=== PATIENT | male | born 1970 | race African-American/Black ===

== ENCOUNTER 2019-11-12 09:08 | Inpatient (IN) | payer SELFPAY ==
[~2019-11-12] VITALS: Ht 175.3 cm; Wt 176.9 kg
[2019-11-12 10:36] LABS: BASOPHILS % 0.4 % (0.0-2.0); HEMATOCRIT. 39.8 % (42.0-52.0); HEMOGLOBIN. 13.2 g/dL (14.0-18.0); LYMPHOCYTES % 12.1 % (20.0-50.0); MEAN CORPUSCULAR HEMOGLOBIN 26.4 pg (28.0-32.0); MEAN CORPUSCULAR VOLUME 79.5 fL (80.0-94.0); MONOCYTES % 8.2 % (2.0-8.0); NEUTROPHILS % 79.3 % (40.0-76.0); PLATELET 288 x1000/uL (130-400); RED BLOOD CELL COUNT 5.01 mill/uL (4.7-6.1); RED CELL DISTRIBUTION WIDTH 16.1 % (11.6-14.6)
[2019-11-12 10:44] LABS: CHLORIDE 100 mEq/L (98-107)
[2019-11-12 10:45] LABS: INR 1.1; PROTHROMBIN TIME 12.4 sec (9.6-11.0)
[2019-11-12] MEDS ORDERED: ACETAMINOPHEN 325MG TABLET PO SCH (11:01)
[2019-11-12] MEDS ORDERED: ALBUTEROL 6.7GM HFA INHALER ORI ONE (11:30)
[2019-11-12] MEDS ORDERED: ACETAMINOPHEN 325MG TABLET PO PRN ×3 (13:30→13:45)
[2019-11-12] MEDS ORDERED: MAGNESIUM/ALUMINUM HYDROXIDE/SIMETHICONE 30ML UDC PO PRN (13:45)
[2019-11-12] MEDS ORDERED: ONDANSETRON HCL 4MG/2ML INJ IV PRN (13:45)
[2019-11-12] MEDS ORDERED: NITROGLYCERIN 0.4MG TABLET SL SL PRN (13:45)
[2019-11-12] MEDS ORDERED: CLONIDINE 0.1MG TABLET PO PRN (13:45)
[2019-11-12] MEDS ORDERED: GUAIFENESIN 200MG/10ML SUGAR FREE UDC PO PRN (13:45)
[2019-11-12] MEDS ORDERED: IPRATROPIUM/ALBUTEROL 0.5-3(2.5)MG/3ML NEB NEB PRN (13:45)
[2019-11-12] MEDS ORDERED: POTASSIUM CHLORIDE 20MEQ TABLET SR PO NR (13:45)
[2019-11-12] MEDS ORDERED: DOCUSATE SODIUM 100MG CAPSULE PO PRN (13:45)
[2019-11-12] MEDS: ENOXAPARIN 40MG/0.4ML SYR SUBCUT SCH ×2 (13:54→22:11)
[2019-11-12] MEDS ORDERED: AZITHROMYCIN 500 MG in DEXT 5% WATER 250 ML IV NR (14:00)
[2019-11-12 14:40] LABS: D-DIMER 12.85 mg/L FEU (<0.50)
[2019-11-12] MEDS ORDERED: CEFTRIAXONE 1 G PREMIX 50 ML IV SCH (16:00)
[2019-11-12 16:46] VITALS: BP 133/69
[2019-11-12 16:50] VITALS: BP 133/69
[2019-11-12] MEDS: CEFTRIAXONE 1 G PREMIX 50 ML IV SCH (17:31)
[2019-11-12] MEDS: DILTIAZEM HCL 60MG TABLET PO SCH (17:31)
[2019-11-12 20:00] VITALS: BP 138/89
[2019-11-12] MEDS ORDERED: ZOLPIDEM TARTRATE 5MG TABLET PO PRN (21:00)
[2019-11-12] MEDS: ASCORBIC ACID 500 MG TABLET PO SCH (22:10)
[2019-11-12] MEDS: FAMOTIDINE 20MG TABLET PO SCH (22:10)
[2019-11-12] MEDS: GUAIFENESIN/DM 600MG/30MG ER TAB 12HR PO SCH (22:10)
[2019-11-13] VITALS: BP 143/95
[2019-11-13] MEDS: DILTIAZEM HCL 60MG TABLET PO SCH ×4 (00:43→18:33)
[2019-11-13 04:00] VITALS: BP 124/91
[2019-11-13 08:00] VITALS: BP 140/94
[2019-11-13] MEDS: GUAIFENESIN/DM 600MG/30MG ER TAB 12HR PO SCH ×2 (08:51→22:08)
[2019-11-13] MEDS: FAMOTIDINE 20MG TABLET PO SCH ×2 (08:51→22:08)
[2019-11-13] MEDS: ASCORBIC ACID 500 MG TABLET PO SCH ×2 (08:51→22:08)
[2019-11-13] MEDS: ZINC SULFATE 220 MG ( 50 ) CAPSULE PO SCH (08:51)
[2019-11-13] MEDS: ENOXAPARIN 40MG/0.4ML SYR SUBCUT SCH ×2 (08:52→22:08)
[2019-11-13] MEDS ORDERED: AZITHROMYCIN 250 MG in DEXT 5% WATER 250 ML IV SCH (11:00)
[2019-11-13 11:38] LABS: BASOPHILS % 0.2 % (0.0-2.0); EOSINOPHILS % 1.9 % (0.0-5.0); HEMATOCRIT. 37.7 % (42.0-52.0); HEMOGLOBIN. 12.5 g/dL (14.0-18.0); LYMPHOCYTES % 18.3 % (20.0-50.0); MEAN CORPUSCULAR HEMOGLOBIN 26.5 pg (28.0-32.0); MEAN CORPUSCULAR VOLUME 79.5 fL (80.0-94.0); MEAN PLATELET VOLUME 8.1 fl (7.4-10.4); MONOCYTES % 9.6 % (2.0-8.0); PLATELET 287 x1000/uL (130-400); RED BLOOD CELL COUNT 4.74 mill/uL (4.7-6.1); RED CELL DISTRIBUTION WIDTH 16.4 % (11.6-14.6)
[2019-11-13 11:50] LABS: CHLORIDE 102 mEq/L (98-107)
[2019-11-13 11:58] LABS: PHOSPHORUS 2.9 mg/dL (2.5-4.9)
[2019-11-13] MEDS ORDERED: AZITHROMYCIN 500 MG in DEXT 5% WATER 250 ML IV SCH (13:45)
[2019-11-13 16:00] VITALS: BP 124/84
[2019-11-13] MEDS: CEFTRIAXONE 1 G PREMIX 50 ML IV SCH (18:33)
[2019-11-13 20:00] VITALS: BP 144/89
[2019-11-14] VITALS: BP 136/73
[2019-11-14] MEDS: DILTIAZEM HCL 60MG TABLET PO SCH ×2 (00:54→06:11)
[2019-11-14 04:00] VITALS: BP 126/82
[2019-11-14] MEDS ORDERED: AMLO5TAB4 MT (06:41)
[2019-11-14] MEDS ORDERED: ASCO500T20 PO (06:41)
[2019-11-14] MEDS ORDERED: ZINC220C2 PO (06:41)
[2019-11-14] MEDS ORDERED: AZIT500T8 MT (06:41)
[2019-11-14] MEDS: ASCORBIC ACID 500 MG TABLET PO SCH (09:38)
[2019-11-14] MEDS: FAMOTIDINE 20MG TABLET PO SCH (09:38)
[2019-11-14] MEDS: ENOXAPARIN 40MG/0.4ML SYR SUBCUT SCH (09:38)
[2019-11-14] MEDS: GUAIFENESIN/DM 600MG/30MG ER TAB 12HR PO SCH (09:38)
[2019-11-14] MEDS: ZINC SULFATE 220 MG ( 50 ) CAPSULE PO SCH (09:38)
[2019-11-14 09:44] VITALS: BP 131/100
== END 2019-11-14 10:00 | disposition home or self-care (01) | DRG 720 ==
LOC: ER 09:39 → EDBEDREQ 11:47 → 7WST 13:27 → EDBEDREQTM 13:37 → EDBEDREQ 13:37 → ENRESERV 15:04
PROVIDERS: ADMIT Internal Medicine; ATTEND Internal Medicine
DX: A41.89 Other specified sepsis (principal); J96.00 Acute respiratory failure, unspecified whether with hypoxia or hypercapnia; N17.0 Acute kidney failure with tubular necrosis; J18.9 Pneumonia, unspecified organism; E44.0 Moderate protein-calorie malnutrition; D68.59 Other primary thrombophilia; E66.01 Morbid (severe) obesity due to excess calories; E87.1 Hypo-osmolality and hyponatremia; E87.6 Hypokalemia; Z20.828 Contact with and (suspected) exposure to other viral communicable diseases; R73.03 Prediabetes; E83.51 Hypocalcemia; D72.810 Lymphocytopenia; I10 Essential (primary) hypertension; J06.9 Acute upper respiratory infection, unspecified; Z71.3 Dietary counseling and surveillance; Z68.43 Body mass index [BMI] 50.0-59.9, adult; Z91.018 Allergy to other foods
CPT/HCPCS: 36415; 71045; 80053; 80061; 83036; 83615; 83735; 83880; 84100; 84145; 85025; 85379; 85384; 87635; 87804; 93005; 99285; J0456; J0696; J1650; J7060